=== PATIENT | female | born 1980 | race African-American/Black ===

== ENCOUNTER 2022-01-16 02:21 | Emergency (ER) | payer MEDICAID ==
[~2022-01-16] VITALS: Ht 165.1 cm; Wt 64.0 kg
[2022-01-16 02:27] VITALS: BP 138/87
[2022-01-16] MEDS ORDERED: CYCLOBENZAPRINE 10MG TABLET PO ONE (03:00)
[2022-01-16] MEDS ORDERED: KETOROLAC 60MG/2ML VIAL IM ONE (03:00)
[2022-01-16] MEDS ORDERED: IBUPROFEN 800MG TABLET PO ONE (03:30)
[2022-01-16] MEDS ORDERED: IBUP-2030 MT (04:15)
[2022-01-16] MEDS ORDERED: CYCL10TA7 MT (04:15)
== END 2022-01-16 05:02 | disposition home or self-care (01) ==
LOC: ER 02:21
DX: S33.5XXA Sprain of ligaments of lumbar spine, initial encounter (principal); J45.909 Unspecified asthma, uncomplicated; V49.9XXA Car occupant (driver) (passenger) injured in unspecified traffic accident, initial encounter; Y93.89 Activity, other specified; Y92.89 Other specified places as the place of occurrence of the external cause; Y99.8 Other external cause status
CPT/HCPCS: 99283